=== PATIENT | female | born 1995 | race Caucasian/White ===

== ENCOUNTER 2019-01-09 14:56 | Emergency (ER) | payer OTHER ==
[~2019-01-09] VITALS: Ht 167.6 cm; Wt 104.5 kg
[2019-01-09 15:34] VITALS: Ht 167.6 cm; Wt 104.5 kg
[2019-01-09] MEDS ORDERED: CLEOCIN HCL300 MG PO (17:00)
[2019-01-09 17:12] VITALS: BP 115/65
== END 2019-01-09 17:12 | disposition home or self-care (01) ==
LOC: D.ER 14:56
DX: L05.01 Pilonidal cyst with abscess (principal)

== ENCOUNTER 2019-01-31 08:41 | Emergency (ER) | payer OTHER ==
[~2019-01-31] VITALS: Ht 167.6 cm; Wt 104.5 kg
[~2019-01-31 08:41] MED LIST: CLEOCIN HCL300 MG PO
[2019-01-31 08:53] VITALS: Ht 167.6 cm; Wt 104.5 kg
[2019-01-31 09:15] LABS: BASOPHILS 0.2 % (0-2); EOSINOPHILS 0.6 % (0-7); HEMATOCRIT 42.5 % (36.0-48.0); HEMOGLOBIN 14.6 g/dL (12-16); IMMATURE GRANULOCYTES 0.8 % (0-5); LYMPHOCYTES 18.4 % (15-50); MCHC 34.4 g/dL (31.0-37.0); MCV 93.2 fL (80.0-100.0); MONOCYTES 7.3 % (2-11); NEUTROPHILS 72.7 % (40-80); RBC 4.56 10x6/uL (4.00-5.40); RDW 14.1 % (11.5-14.5)
[2019-01-31 09:21] LABS: PLATELET COUNT 214 10x3/uL (130-400)
[2019-01-31 09:30] LABS: HCG URINE POSITIVE (NEGATIVE)
[2019-01-31 09:34] LABS: APPEARANCE HAZY (CLEAR); BILIRUBIN NEGATIVE (NEGATIVE); COLOR YELLOW (YELLOW); GLUCOSE NEGATIVE (NEGATIVE); KETONE SMALL mg/dL (NEGATIVE); NITRITE NEGATIVE (NEGATIVE); PROTEIN 1+ mg/dL (NEGATIVE); SPECIFIC GRAVITY 1.025 (1.005-1.020); UROBILINOGEN NORMAL (NORMAL)
[2019-01-31 09:35] LABS: BACTERIA FEW /hpf (NONE SEEN); EPITHELIAL CELLS 0-5 /hpf (0-5); WHITE CELLS - URINE 0-5 /hpf (0-5)
[2019-01-31 09:38] LABS: ALBUMIN 4.1 g/dL (3.4-5.0); ALKALINE PHOSPHATASE 71 U/L (46-116); ALT (SGPT) 109 U/L (10-68); BILIRUBIN - TOTAL 0.29 mg/dL (0.2-1.3); CALC OSMOLALITY 276 mosm/kg (275-300); CALCIUM 9.2 mg/dL (8.5-10.1); CARBON DIOXIDE 22.8 mmol/L (21.0-32.0); CHLORIDE - SERUM 105 mmol/L (98-107); CREATININE - SERUM 0.7 mg/dL (0.6-1.3); GLUCOSE 130 mg/dL (74-106); LIPASE 70 U/L (73-393); POTASSIUM - SERUM 3.8 mmol/L (3.5-5.1); PROTEIN - SERUM 7.3 g/dL (6.4-8.2); SODIUM 138 mmol/L (136-145); UREA NITROGEN 10 mg/dL (7-18); eGFR NON AFRICAN AMERICAN > 90 mL/min (90-120)
[2019-01-31] MEDS ORDERED: PRENAVITE1 TAB PO (11:16)
[2019-01-31 11:26] VITALS: BP 124/62
== END 2019-01-31 11:27 | disposition home or self-care (01) ==
LOC: D.ER 08:41
PROVIDERS: Family Medicine
DX: R10.9 Unspecified abdominal pain (principal); R31.9 Hematuria, unspecified; Z33.1 Pregnant state, incidental

== ENCOUNTER → 2019-05-24 11:44 | Outpatient (CLI) | payer MEDICAID ==
[2019-01-31 08:53] VITALS: BMI 37.2
[~2019-05-24 11:44] MED LIST changes: +PRENAVITE1 TAB PO
== END | disposition home or self-care (01) ==
LOC: D.US 11:44
PROVIDERS: ATTEND Obstetrics & Gynecology
DX: O09.90 Supervision of high risk pregnancy, unspecified, unspecified trimester (principal); Z3A.00 Weeks of gestation of pregnancy not specified

== ENCOUNTER 2019-07-31 20:22 | Inpatient (IN) | payer MEDICAID ==
[~2019-07-31] VITALS: Ht 167.6 cm; Wt 119.1 kg
[2019-07-31 21:00] LABS: HEMATOCRIT 37.7 % (36.0-48.0); HEMOGLOBIN 12.6 g/dL (12-16); MCH 30.1 pg (26.0-34.0); MCHC 33.4 g/dL (31.0-37.0); MCV 90.2 fL (80.0-100.0); MEAN PLATELET VOLUME 9.9 fL (7.4-10.4); PLATELET COUNT 298 10x3/uL (130-400); RBC 4.18 10x6/uL (4.00-5.40); RDW 13.3 % (11.5-14.5); WBC 21.4 10x3/uL (4.8-10.8)
[2019-07-31 21:04] LABS: CALC OSMOLALITY 272 mosm/kg (275-300); CALCIUM 9.1 mg/dL (8.5-10.1); CARBON DIOXIDE 21.8 mmol/L (21.0-32.0); CHLORIDE - SERUM 103 mmol/L (98-107); CREATININE - SERUM 0.7 mg/dL (0.6-1.3); GLUCOSE 119 mg/dL (74-106); SODIUM 137 mmol/L (136-145); UREA NITROGEN 6 mg/dL (7-18); eGFR NON AFRICAN AMERICAN > 90 mL/min (90-120)
[2019-07-31 21:10] LABS: ALBUMIN 2.7 g/dL (3.4-5.0); ALKALINE PHOSPHATASE 194 U/L (30-120); ALT (SGPT) 20 U/L (10-68); BILIRUBIN - TOTAL 0.28 mg/dL (0.2-1.3); PROTEIN - SERUM 7.3 g/dL (6.4-8.2)
[2019-07-31 21:40] LABS: EOSINOPHILS 1 % (0-7); LYMPHOCYTES 6 % (15-50); MONOCYTES 4 % (2-11); NEUTROPHILS 84 % (40-80); PLATELET ESTIMATE NORMAL
[2019-07-31 22:39] LABS: BILIRUBIN NEGATIVE (NEGATIVE); GLUCOSE NEGATIVE (NEGATIVE); KETONE NEGATIVE (NEGATIVE); NITRITE NEGATIVE (NEGATIVE); SPECIFIC GRAVITY 1.015 (1.005-1.020); UROBILINOGEN NORMAL (NORMAL)
--- NOTE | 2019-07-31 23:00 | NUR ---
PT FHT 163 AT THIS TIME.
--- NOTE | 2019-08-01 | NUR ---
PT C/O BEING CONCERNED THAT HER BABY HAS NOT MOVED SINCE ABOUT 1900 PT STATES THAT HE WAS VERY ACTIVE ALL DAY. L AND D CALLED AND INFORMED STATES THEY WILL INFORM DR PHILIPPE.
[2019-08-01 01:10] VITALS: Ht 167.6 cm; Wt 119.1 kg
--- NOTE | 2019-08-01 01:15 | NUR ---
DR PHILIPPE CALLED TO CHECK ON PT AND GIVE NEW ORDERS. HE IS ORDERING A BPP ULTRASOUND STAT...HE IS TO BE NOTIFIED IF SCORE ANYTHING OTHER THAN 88. ALSO ORDERED 2 NEW ANTIBIOTICS TO BE GIVEN TONIGHT.
--- NOTE | 2019-08-01 01:20 | NUR ---
CALLED RADIOLOGY TO ADVISE OF STAT ULTRASOUND ORDER.
--- NOTE | 2019-08-01 03:10 | NUR ---
PT TAKEN DOWN TO L & D FOR NON STRESS TEST VIA WHEELCHAIR.
--- NOTE | 2019-08-01 04:15 | NUR ---
ESCORTED PT BACK TO MED SURG FROM L & D VIA WHEELCHAIR.
--- NOTE | 2019-08-01 10:42 | NUR ---
REPORT CALLED TO [facility].
--- NOTE | 2019-08-01 11:00 | NUR ---
RECEIVED PT BY BED FROM [facility] FLOOR, UPON ARRIVAL SHE IS AWAKE AND ALERT. RATES PAIN AT 0/10. SALINE LOCK TO RIGHT HAND PATENT WITHOUT COMPLAINTS OF TENDERNESS. PT DOES HAVE A HACKING NON PRODUCTIVE COUGH, INSPIRATORY AND EXPIRATORY WHEEZES NOTED BILAT. VSS WITH TEMP AT 97.9. LARGE ICE WATER REQUESTED. NO OTHER NEEDS AT THIS TIME. CALL LIGHT IN REACH.
--- NOTE | 2019-08-01 11:15 | NUR ---
DR PHILIPPE ON UNIT WITH VERBAL REPORT GIVEN OF PT COUGH AND WHEEZES NOTED BILAT AND THAT SHE IS CURRENTLY AFEBRILE. NEW MED ORDERS RECEIVED FOR ROBITUSSIN AC Q4H PRN AND RT CONSULT FOR UPDRATE TREATMENTS. MD TO ROOM TO TALK WITH PT ABOUT PLAN OF CARE.
--- NOTE | 2019-08-01 11:40 | NUR ---
LARGE ICE WATER PROVIDED REQUESTED. NO OTHER NEEDS AT THIS TIME. CALL LIGHT IS WITH IN HER REACH.
--- NOTE | 2019-08-01 12:45 | NUR ---
ROBITUSSIN GIVEN PO SCANNED TO EMAR. PT SITTING UP IN BED WITH REGULAR DIET TRAY. DENIES PAIN AT THIS TIME.
--- NOTE | 2019-08-01 14:01 | NUR ---
AMPICILLIN IV COMPLETED, IV SITE FLUSHED AND SALINE LOCKED. PT REQUEST TO GET UP TO SHOWER, SALINE LOCK COVERED. TOWELS PLACED IN BATHROOM, SHE DENIES NEED FOR ANY ASSISTANCE. BED LINENS CHANGED WHILE PT IS IN THE SHOWER.
--- NOTE | 2019-08-01 14:16 | NUR ---
OUT OF SHOWER AND DRESSED IN HER PERSONNEL CLOTHING, DENIES NEEDS AT THIS TIME. CONTINUE TO RATE PAIN AT 0/10, LIGHT TURNED DOWN PER HER REQUEST, STATES SHE IS GOING TO TRY AND SLEEP IF POSSIBLE WILL CALL IF NURSE IS NEEDED.
--- NOTE | 2019-08-01 17:45 | NUR ---
pt awake and watching tv with her mom at bedside. denies pain but does ask for cough med.
--- NOTE | 2019-08-01 18:00 | NUR ---
robitussin ac given as scanned to emar. no other needs at this time.
--- NOTE | 2019-08-01 18:15 | NUR ---
RT notified for second time about updraft treatment.
--- NOTE | 2019-08-01 19:30 | NUR ---
PATIENT TRANSFERED TO ROOM 1257, ORIENTED TO ROOM, FHT 155-160 BABY ACTIVITY DETECTED ON DOPPLER
--- NOTE | 2019-08-01 20:00 | NUR ---
sitting up in bed watching TV. Mother at bedside, SR up xe and call light in reach
--- NOTE | 2019-08-01 21:00 | NUR ---
patient watching TV with her mother present at bedside. RT here for breathing treatment. Dry cough with no sputum. Informed patient that Doctor has Rx her medication for sleep if needed.
--- NOTE | 2019-08-01 22:48 | NUR ---
Ambien 10 mg requested and given for sleep at patient request
--- NOTE | 2019-08-02 00:05 | NUR ---
Sleeping well, saline lock patent, no redness. SR up x2 call light in reach
--- NOTE | 2019-08-02 01:34 | NUR ---
SLEEPING, CALL LIGHT IN REACH, IV FLUSHED WITH NS EASILY
--- NOTE | 2019-08-02 01:34 | NUR ---
resting well, apple juice, 240 ml call light in reach
--- NOTE | 2019-08-02 02:20 | NUR ---
RESTING WITH EYES CLOSED, MOTHER AT BEDSIDE, CALL LIGHT IN REACH, NIGHT LIGHT ON
--- NOTE | 2019-08-02 03:15 | NUR ---
RESTING WITH EYES CLOSED, NO DISTRESS NOTED. CALL LIGHT IN REACH, FAMILY AT BEDSIDE
--- NOTE | 2019-08-02 04:18 | NUR ---
SLEEPING ON RIGHT SIDE, CALL LIGHT IN REACH, NO DISTRESS NOTED
--- NOTE | 2019-08-02 05:00 | NUR ---
patient sleeping, has been dealing with cough over the past month, did not wake for VS
--- NOTE | 2019-08-02 06:15 | NUR ---
patient remains asleep, mother at bedside, call light in reach
--- NOTE | 2019-08-02 07:25 | NUR ---
DR. PHILIPPE ON UNIT, PROGRESS REPORT GIVEN TO .
--- NOTE | 2019-08-02 07:45 | NUR ---
TO PT'S ROOM FOR AM ASSESSMENT. ASSESSMENT COMPLETED, SEE FLOWSHEET. PT PERFORMING COUGHING AND DEEP BREATHING EXERCISES, WHICH PRODUCES A NON PRODUCTIVE COUGH. PT REPORTS SHE IS FEELING MUCH BETTER. PT ALSO REPORTS HER IV TO RIGHT HAND HAS BECOME PAINFUL WITH MED ADM, AND IS NOW TENDER, AND WAS ITCHING LAST NIGHT. PT REQUESTS IV TO BE RESITED. BREAKFAST TRAY SERVED BY DIETARY, PT HAS EATEN 75 %. PT DENIES PAIN OR OTHER NEEDS AT THIS TIME, SR UP X 2, CALL LIGHT AND PHONE WITHIN REACH.
--- NOTE | 2019-08-02 08:15 | NUR ---
IV RESITED TO LEFT WRIST WITH 20 G CATH X 1 ATTEMPT WITH NS INFUSING TO KVO. SEE EMAR FOR ALL MED ADM BY THIS RN.
--- NOTE | 2019-08-02 08:20 | NUR ---
DR. PHILIPPE IN ROOM SPEAKING WITH PT REGARDING PLAN OF CARE, WILL REPEAT LABWORK IN THE MORNING, WILL CONTINUE ANTIBIOTICS.
--- NOTE | 2019-08-02 10:05 | NUR ---
TO PT'S ROOM, IV NS SET TO KVO, ANTIBIOTIC IS COMPLETED. NO REDNESS OR SWELLING NOTED TO IV SITE. PT IS RESTING WITH EYES CLOSED, RESP EVEN AND UL. LIGHTS THEN DIMMED IN ROOM FOR PT TO REST. SRUP X2, CALL LIGHT AND PHONE WITHIN REACH.
--- NOTE | 2019-08-02 10:20 | NUR ---
RESPIRATORY HERE AND TO PT'S ROOM FOR TREATMENT.
--- NOTE | 2019-08-02 13:08 | NUR ---
report received from A [employer] harding. pt denies pain or discomfort and has no needs at this time.
--- NOTE | 2019-08-02 15:00 | NUR ---
unasyn iv completed, saline lock flushed with 5ml. FHT with doppler 140-150 x 2 minutes. Pt continue to deny pain or discomfort and states that she is feeling better today. Call light in reach.
--- NOTE | 2019-08-02 16:45 | NUR ---
IV COVERED SO THAT PT MAY TAKE A SHOWER. BED LINENS CHANGED WHILE SHE IS SHOWERING.
--- NOTE | 2019-08-02 18:00 | NUR ---
PT DENIES NEEDS AT THIS TIME. RATES PAIN AT 0/10.;
--- NOTE | 2019-08-02 19:30 | NUR ---
SITTING UP IN BED EATING, LUNGS CLEAR, FEELING MUCH BETTER. SALINE LOCK PATENT, IV MEDS STARTED. DENIES NEEDS
--- NOTE | 2019-08-02 20:20 | NUR ---
WATCHING TV, CALL LIGHT IN REACH, SR UP X2 DENIES NEEDS
--- NOTE | 2019-08-02 21:45 | NUR ---
FHT 150 PER DOPPLER, DENIES NEEDS, SALINE LOCK PATIENT, MOTHER AT BEDSIDE, CALL LIGHT IN REACH
--- NOTE | 2019-08-02 23:00 | NUR ---
RECEIVED REPORT FROM CHEYANNE SALEEM
--- NOTE | 2019-08-02 23:20 | NUR ---
PT RESTING IN BED, WATCHING TV, S/O AT BEDSIDE, PT DENIES NEEDS OR PAIN AT THIS TIME
--- NOTE | 2019-08-03 00:10 | NUR ---
PT AWAKE, LAYING IN BED PLAYING ON CELL PHONES, VS OBTAINED, PT DENIES PAIN, REQUESTED AND SERVED FRESH H20, DENIES FURTHER NEEDS, S/O ASLEEP ON COUCH, BED IN LOW POSITION, SIDE RAILS X 2, CALL LIGHT IN REACH
--- NOTE | 2019-08-03 01:18 | NUR ---
PT AWAKE, SALINE LOCK CONVERTED TO IV, FLUSHED WITH 10MLS OF NS WITH NO DIFFICULTY, ADM COUGH SYRUP PO AND HUNG UNASYN IVPB PER MD ORDERS, SEE EMAR, PT DENIES NEEDS OR PAIN AT THIS TIME, S/O ASLEEP AT BEDSIDE
--- NOTE | 2019-08-03 02:03 | NUR ---
UNASYN FINISHED INFUSING, ADM ZITHROMAX IVPB PER MD ORDERS, SEE EMAR
--- NOTE | 2019-08-03 04:16 | NUR ---
PT RESTING WITH EYES CLOSED, RESP QUIET, NO DISTRESS NOTED, LEFT UNDISTURBED AT THIS TIME, BED IN LOW POSITION, SIDE RAILS X 2, CALL LIGHT IN REACH, S/O ASLEEP ON COUCH
--- NOTE | 2019-08-03 06:00 | NUR ---
CHEYANNE SALEEM REPORTS THAT SHE SALINE LOCKED IV, DENIES NEEDS OR PAIN AT THIS TIME
--- NOTE | 2019-08-03 07:00 | NUR ---
REPORT RECEIVED FROM Danny PRICE RN. PT RESTING WITH EYES CLOSED. FEMALE VISITOR LORENA AT BEDSIDE ON SOFA.
[2019-08-03 07:25] VITALS: BP 117/81
--- NOTE | 2019-08-03 07:25 | NUR ---
TO ROOM TO ADMINISTER ANTIBIOTIC AND ASSESSMENT. IV FLUSHED WITH 10CC NS WITHOUT DIFFICULTY. IV SITE PATENT WITHOUT REDNESS, SWELLING OR PAIN. UNASYN HUNG AND INFUSING VIA IV PUMP. ASSESSMENT COMPLETE. SEE FLOWSHEET. FHT'S 140-150'S PER DOPPLER.
--- NOTE | 2019-08-03 09:15 | NUR ---
DR. PHILIPPE HERE TO SEE PT.
--- NOTE | 2019-08-03 09:30 | NUR ---
IV D/C'D. CATHETER INTACT. PRESSURE APPLIED TO SITE. DRESSING APPLIED. NO BLEEDING NOTED.
--- NOTE | 2019-08-03 11:00 | NUR ---
VERBAL AND WRITTEN DISCHARGE INSTRUCTIONS GONE OVER WITH PT, SHE IS PROVIDED WITH WRITTEN SCRIPTS FOR AMOXIL 500MG, AZITHROMYCIN 250MG, AND ROBITUSSIN AC. DENIES ANY QUESTIONS OR CONCERNS AND STATES HER UNDERSTANDING TO RETURN TO ER IF HER SYMPTOMS RETURN. SHE IS TO FOLLOW UP AT [facility] ON 08-12-19. WHEELCHAIR OFFERED BUT SHE DENIES, AMB TO FRONT WITH NURSE. HOME BY PRIVATE CAR WITH HER MOTHER.
--- NOTE | 2019-08-04 10:06 | MORECARE ---
CASE MANAGEMENT DISCHARGE SUMMARY PATIENT: JOSE EDUARDO NULL UNIT: [id number] ADM DATE: 07/31/19 AGE: 23 : [birth year] SEX: F ROOM/BED: D.1257 AUTHOR: BRETT SUERO PHYSICIAN: REFERRING PHYSICIAN: ANTOINETTE PHILIPPE MD DATE OF SERVICE: 08/04/19 Discharge Plan Patient Name: JOSE EDUARDO NULL [facility] [facility] 1995 Planned Disposition: Home Anticipated Discharge Date: 08/03/19 Discharge Date: 08/03/2019 Expected LOS: 3 Initial Reviewer: [email or web address] Initial Review Date: 08/01/2019 Generated: 08/04/19 11:05 am Patient Name: JOSE EDUARDO NULL Page [phone] at 1006 All edits/amendments must be made on the electronic document DICTATION DATE: 08/04/19 1005 HOIST WORKER: DARIEL 08/04/19 1005 RPT#: [id number] DC DATE:08/03/19 STATUS: DIS IN [facility] [address] [place] [address] END OF REPORT
== END 2019-08-03 11:12 | disposition home or self-care (01) | DRG 833 ==
LOC: D.ER 20:22 → D.MS 23:36 → D.LD 23:36 → D.WS 08-01 11:31 → D.LD 08-01 19:30
PROVIDERS: Family Medicine; ADMIT Obstetrics & Gynecology; ATTEND Obstetrics & Gynecology
DX: O99.513 Diseases of the respiratory system complicating pregnancy, third trimester (principal); Z3A.32 32 weeks gestation of pregnancy

== ENCOUNTER 2019-08-24 15:11 | Outpatient (CLI) | payer MEDICAID ==
[2019-08-01 01:10] VITALS: BMI 42.3
[~2019-08-24 15:11] MED LIST changes: +AMOXICILLIN500 M1 PO; +FLOVENT HFA 11012 GM INH; +GUAIATUSSIN AC PO; +GUAIFEN-CODEINE10 ML PO; +ZITHROMAX250 MG PO
== END 2019-08-24 17:30 | disposition home or self-care (01) ==
LOC: D.LDO 15:11
PROVIDERS: ATTEND Student in an Organized Health Care Education/Training Program
DX: O35.9XX0 Maternal care for (suspected) fetal abnormality and damage, unspecified, not applicable or unspecified (principal)

== ENCOUNTER 2019-09-13 00:03 | Outpatient (CLI) | payer MEDICAID ==
[2019-08-01 01:10] VITALS: BMI 42.3
[2019-09-13 02:28] LABS: BILIRUBIN NEGATIVE (NEGATIVE); GLUCOSE NEGATIVE (NEGATIVE); KETONE NEGATIVE (NEGATIVE); NITRITE NEGATIVE (NEGATIVE); SPECIFIC GRAVITY 1.025 (1.005-1.020); UROBILINOGEN NORMAL (NORMAL)
== END 2019-09-13 01:42 | disposition home or self-care (01) ==
LOC: D.LDO 00:03
PROVIDERS: ATTEND Obstetrics & Gynecology
DX: O26.893 Other specified pregnancy related conditions, third trimester (principal); Z3A.38 38 weeks gestation of pregnancy; N85.8 Other specified noninflammatory disorders of uterus

== ENCOUNTER 2019-09-18 15:04 | Outpatient (CLI) | payer MEDICAID ==
[2019-08-01 01:10] VITALS: BMI 42.3
== END 2019-09-18 15:46 | disposition home or self-care (01) ==
LOC: D.LDO 15:04
PROVIDERS: ATTEND Obstetrics & Gynecology
DX: O26.893 Other specified pregnancy related conditions, third trimester (principal); Z3A.39 39 weeks gestation of pregnancy; N85.8 Other specified noninflammatory disorders of uterus

== ENCOUNTER 2019-09-23 19:45 | Inpatient (IN) | payer MEDICAID ==
[~2019-09-23] VITALS: Ht 167.6 cm; Wt 119.1 kg
--- NOTE | ~2019-09-23 | OP ---
PATIENT NAME: JOSE EDUARDO NULL MEDICAL RECORD: [id number] :[birth year] LOCATION:[facility] D.[id number] ADMISSION DATE:09/23/19 SURGEON: MARIANNA VELASQUEZ DO DATE OF OPERATION: 09/25/2019 PREOPERATIVE DIAGNOSIS: Failure to progress. POSTOPERATIVE DIAGNOSIS: Failure to progress. PRIMARY SURGEON: Marianna Velasquez DO ANESTHESIA: Epidural. PROCEDURE: Primary low transverse section via Pfannenstiel incision. OPERATIVE FINDINGS: Male , weight 9 pounds 3 ounces, delivered at 1956, Apgars 9 and 9. Normal appearing uterus, bilateral fallopian tubes, bilateral ovaries. SPECIMENS: Placenta and cord. ESTIMATED BLOOD LOSS: 1100 cc. IV FLUIDS: 2300 cc. URINE OUTPUT: 175 cc clear urine. COMPLICATIONS: Uterine atony and given Hemabate times 1 with good uterine tone following. PROCEDURE IN DETAIL: The risks, benefits, alternatives, and indications of procedure were discussed with the patient. She voiced understanding of the procedure and signed the consent. She was taken to the OR where epidural anesthesia was administered and found to be adequate. She was placed in the dorsal supine position with a leftward tilt. She was prepped and draped in the normal sterile fashion. A Pfannenstiel skin incision was made with the scalpel and carried down to the underlying layer of the fascia with the Bovie. The fascia was incised in the midline and extended laterally. The inferior aspect of the fascial incision was grasped with Rufino clamps and the rectus muscle was dissected off sharply. Attention was then turned to the superior aspect of the fascial incision and the rectus muscle was dissected off in a similar fashion. The rectus muscle was in the midline down to the level of peritoneum. The peritoneum was identified and noted to be free of adherent bowel and entered bluntly. The peritoneum was further with gentle traction. The bladder blade was inserted. The uterus was incised in a transverse fashion in the lower uterine segment. The incision was extended with cephalad caudad traction. The infant's head was brought to the incision and the infant delivered without difficulty. Mouth and nose were suctioned. Cord was clamped and cut and the was handed off to waiting pediatricians. The placenta was manually removed. The uterus was exteriorized and a moist lap was used to assure complete removal of placental membranes. The hysterotomy was closed with 0 Vicryl in a running locked fashion with double layer closure. There was a hematoma noted at the left upper portion of the incision, which was ligated with suture and noted to not be expanding. Uterus, tubes, and ovaries were noted to be normal. The posterior cul-de-sac was irrigated with warm sterile water. OPERATIVE REPORT [id number] JOSE EDUARDO NULL Uterus, tubes, and ovaries were returned back to the abdominal cavity. A moist laparotomy sponge was used to assure complete removal of blood clots and fluid from the abdominal cavity. The hysterotomy was reinspected and noted to be hemostatic. The rectus muscle was closed with 2-0 Monocryl in a running fashion with good hemostasis. The fascial incision was closed with 0 Vicryl in a running fashion with good hemostasis. The subcutaneous fat was closed with 2-0 plain suture. The skin was closed in a subcuticular fashion with 3-0 Monocryl and Dermabond covering. All needle, lap, sponge, and instrument counts were correct times 2. The patient tolerated the procedure well and she was taken to recovery room in stable condition. TRANSINT:[id number] Voice Confirmation ID: [id number] DOCUMENT ID: [id number] MARIANNA VELASQUEZ DO CC: [id number] DICTATION DATE: 09/29/19920 CARBON COATER MACHINE OPERATOR: 09/29/19 1325 DIS IN 09/28/19 [facility] [address] [place] [address]
[2019-09-23 20:27] VITALS: BP 149/83; Ht 167.6 cm; Wt 119.1 kg
--- NOTE | 2019-09-23 22:07 | NUR ---
in room for wellness check. sittin up on bedside, mother in room. snack given
[2019-09-23 22:17] LABS: HEMATOCRIT 34.4 % (36.0-48.0); HEMOGLOBIN 10.8 g/dL (12-16); MCH 28.3 pg (26.0-34.0); MCHC 31.4 g/dL (31.0-37.0); MCV 90.3 fL (80.0-100.0); RBC 3.81 10x6/uL (4.00-5.40); RDW 14.3 % (11.5-14.5); WBC 10.3 10x3/uL (4.8-10.8)
[2019-09-24 16:25] LABS: BILIRUBIN NEGATIVE (NEGATIVE); GLUCOSE NEGATIVE (NEGATIVE); KETONE NEGATIVE (NEGATIVE); NITRITE NEGATIVE (NEGATIVE); SPECIFIC GRAVITY 1.015 (1.005-1.020); UROBILINOGEN NORMAL (NORMAL)
[2019-09-24 16:38] LABS: UDS - AMPHET NEGATIVE QUAL (NEGATIVE); UDS - BARB NEGATIVE QUAL (NEGATIVE); UDS - BENZO NEGATIVE QUAL (NEGATIVE); UDS - COCAINE NEGATIVE QUAL (NEGATIVE); UDS - OPIATE NEGATIVE QUAL (NEGATIVE); UDS - PCP NEGATIVE QUAL (NEGATIVE); UDS - THC NEGATIVE QUAL (NEGATIVE)
[2019-09-25 05:08] LABS: RAPID PLASMA REAGIN Non Reactive (Non Reactive)
--- NOTE | 2019-09-25 21:27 | NUR ---
PT REC'D FROM RECOVERY AT THIS TIME. NO DISTRESS NOTED. CORRAL CATH PATENT. PT ORIENTED TO ROOM AND CALL LIGHT. Karel SALEH RN
[2019-09-25 21:31] VITALS: BP 137/74
--- NOTE | 2019-09-25 22:00 | NUR ---
THIS RN TO BEDSIDE. PT AA&O X 4. CURRENTLY REPORTS ABD PAIN 7/10 THAT SHE DESCRIBES BURNING. BUTCHER CHICKEN AND FISH TEACHING DONE WITH PLANS TO INITIATE JAISON. PT EDUCATION GIVEN TO INCLUDE T/C/D, I.S. FUNDAL MASSAGE AND SITE EFFECTS OF HEMABATE. PT VERBALZIES UNDERSTANDING. FUNDAL MASSAGE PERFORMED. FUNDUS SLIGHTLY BOGGY, BUT FIRMS EASILY W/MASSAGE. SMALL RUBRA LOCHIA AND 1 QUARTER SIZE CLOT EXPRESSED W/MASSAGE. PERICARE DONE. PT TURNED SIDE TO SIDE W/MINIMAL ASSISTANCE AND CLEAN CHUX/TOWEL/PERIPADS PLACED. SEE FLOWSHEET FOR COMPLETE SHIFT ASSESSMENT POST DELIVERY.
--- NOTE | 2019-09-25 22:00 | NUR ---
FUNDAL CHECK DONE. FUNDUS FIRM,U/1, SMALL LOCHIA NOTED. PERICARE DONE TO CLEAN LOCHIA AND STOOL.
--- NOTE | 2019-09-25 22:15 | NUR ---
FUNDUS FIRM, U/1, SMALL LOCHIA NOTED. NO CLOTS EXPRESSED W/MASSAGE. PERICARE DONE FOR LOCHIA AND STOOL.
--- NOTE | 2019-09-25 22:30 | NUR ---
FUNDAL CHECK DONE. FUNDUS FIRM,U/1, SMALL RUBRA LOCHIA NOTED. PERICARE DONE FOR LOCHIA AND STOOL. CLEAN CHUX,TOWEL AND PAD PROVIDED. APPROX 150ML URINE DUMPED FROM UROMETER TO START Q 4HR I&O. PT'S MOTHER HAS BROUGHT HER A SODA TO DRINK. JELLO X 2 SERVED PER PT'S MOTHER. ICE CAP TO INCISION SITE.
--- NOTE | 2019-09-25 22:50 | NUR ---
PERICARE PROVIDED AT THIS TIME. PT TOLERATED WELL. Karel SALEH RN
--- NOTE | 2019-09-25 23:30 | NUR ---
PT'S MOTHER COMES TO NURSING STATION TO REPORT PT HAS HAD ANOTHER BM. THIS RN AND Karel SALEH RN TO BEDSIDE. PT TURNED FROM SIDE TO SIDE AND PERICARE PERFORMED. CLEAN TOWELS/CHUX/PADS PROVIDED. PT TOLERATED WELL. REPORTS PAIN 7/10 AFTER MOVING THIS TIME. PT ENCOURGED TO CONTINUE PUSHING TRENCH DIGGER HELPER BUTTON UNTIL SHE IS COMFORTABLEF. PT VERBALIZES UNDERSTANDING. TRENCH DIGGER HELPER BUTTON AT PT'S SIDE. BED IN LOW POSITION, SIDE RAILS UPX 2. CALL LIGHT AT PT'S SIDE. MOTHER AT BEDSIDE HOLDIUNG BABY. PT DENIES FURTHER NEEDS AT THIS TIME.
[2019-09-26] VITALS (7 sets, daily range): BP systolic 117–137; BP diastolic 57–84
--- NOTE | 2019-09-26 | NUR ---
THIS RN TO BEDSIDE FOR ROUNDING AND MIDNIGHT VITAL SIGNS. PT AA&O X 4. REPORTS INCREASED PAIN 8-9/10. PT REPORTS SHE HAS BEEN PUSHING HER CONSULTING BUSINESS DEVELOPER BUTTON. ORDERED CONSULTING BUSINESS DEVELOPER BOLUS DOSE EXCEEDS HARD STOPS. 4MG LIMIT GIVEN CONSULTING BUSINESS DEVELOPER BOLUS. VITAL SIGNS STABLE. PT NOW SHAKING. TEACHING PROVIDED. AT END OF ROUNDING, PT NO LONGER SHAKING. PT W/BABY UP IN ARMS. DENIES NEEDS AT THIS TIME. PT'S MOTHER HAS RAISED PT'S BED UP SO PT MAY REACH INTO CRIB WHILE AT BEDSIDE. PT DESIRES BED TO BE AT HIGHER LEVEL. TEACHING DONE IN REGARDS TO ARM RAILS REMAINING UP. CORRAL CATH DRAINING WELL VIA GRAVITY AT BEDSIDE. SCE WRAPS REMAIN IN PLACE, CONNECTED TO PUMP AND PUMP IS ON AND FUNCTIONING. CALL LIGHT, CONSULTING BUSINESS DEVELOPER BUTTON AND BEDSIDE TABLE AT PT'S SIDE.
--- NOTE | 2019-09-26 01:40 | NUR ---
THIS RN AND Karel SALEH RN TO BEDSIDE. FUNDAL CHECK DONE. FUNDUS FIRM,U/1, SMALL RUBRA LOCHIA NOTED. NO STOOL PRESENT. PERICARE DONE. CLEAN PERIPADS PLACED. PT REPORTS BECAUSE SHE CONTINUES TO SHAKE, HER INCISIONAL PAIN HAS INCREASED. PT RATES PAIN /10. PT ENCOURAGED TO CONTINUE TO PUSH WEATHER FORECASTER BUTTON AND SCHEDULED TORADOL WILL BE GIVEN AT 0300. PT VERBALZIES UNDERSTANDING AND AGREEABLE TO WAITING. PT DENIES NEEDS AT THIS TIME. BED LOWERED. SIDE RAILS UP X 2. CALL LIGHT AND WEATHER FORECASTER BUTTON AT PT'S SIDE. BABY PLACED IN PT'S ARMS PER PT'S MOTHER.
--- NOTE | 2019-09-26 01:50 | NUR ---
PT PERFORMS I.S. X 3 W/GOOD EFFORT AND CLEARS THROAT W/GOOD EFFORT. PT ENCOURAGED TO PERFORM I.S. X 3 [address] HR. SCD WRAPS REMAIN IN PLACE BILATERALLY. REMAIN CONNECTED TO PUMP AND PUMP IS ON AND FUNCTIONING.
--- NOTE | 2019-09-26 02:45 | NUR ---
PT RINGS CALL LIGHT REQUESTING ORANGE JUICE. THIS RN TO BEDSIDE TO SERVE LARGE ORNAGE JUICE. PAIN ASSESSED. PT REPORTS PAIN 6/10 AND REPORTS SHE HAS BEEN PUSHING HER TROLLEY COLLECTOR BUTTON. PT INFORMED THAT TORADOL IS SCHEDULED AT 0300 AND WILL BE ADMINISTERED.
--- NOTE | 2019-09-26 03:00 | NUR ---
THIS RN TO BEDSIDE TO ADMINISTER TORADOL 30MG IVP. PT FOUND TO BE SLEEPING IN LOW CHISHOLM'S POSITION. RESP EVEN. PT UNAWARE OF THIS RN'S PRESENCE. ID BAND SCANNED AND TORADOL ADMIN. WHILE AT BEDSIDE PT AWAKENS. INFORMED THAT TORADOL HAS BEEN GIVEN. PT DENIES NEEDS.
--- NOTE | 2019-09-26 03:10 | NUR ---
PT HEARD TO BE CALLING OUT TO HER MOTHER. THIS RN TO BEDSIDE TO SHE WAS PT IS NEEDING. PT REQUEST BLANKETS BE REMOVED SHE IS HOT. BLANKETS REMOVED AND ROOM TEMP ADJUSTED. PULSE OX PLACED BACK ON PT. MHR IS 132. PAIN ASSESSED. PT REPORTS PAIN IS 5/10. STATES "IT'S NOT THAT BAD." TEMP OBTAINED. ORAL TEMP OF 99.1 NOTED. PT DENIES SOB OR PAIN IN HER CHEST.
--- NOTE | 2019-09-26 03:38 | NUR ---
REPORT OF PT'S INCREASED HEART RATE, CURRENT BP, TEMP NO C/O CHEST PAIN OR SOB. ORDERS REC'D O GIVE 1LITER BOLUS OF NS AND HAVE AM CBC DRAWN NOW.
--- NOTE | 2019-09-26 03:42 | NUR ---
LAB CALLED FOR AM CBC TO DRAWN NOW RATHER THAN AT 0500.
--- NOTE | 2019-09-26 03:46 | NUR ---
NS UP TO INFUSE AT 999ML/HR PER MD ORDERS. LAB AT BEDSIDE FOR CBC DRAW. PT CONTINUES TO DENY SOB OR CHEST PAIN. URINE OUTPUT SINCE 0230 IS 150ML. URINE HAS BECOME MORE CONCENTRATED. FUNDUS FIRM,U/1. CURRENT PERIPADS W/MODERATE LOCHIA NOTED. SMALL RUBRA LOCHIA AND NO BLOOD CLOTS NOTED W/FUNDAL CHECK. CLEAN PERIPADS PLACED. PT REPORTS PAIN 5/10. STATES SHE DOESN'T FEEL THE NEED TO PUSH HER REGULATORY SUBMISSIONS ASSOCIATE BUTTON FOR PAIN AT THIS TIME. BED LOW, SIDE RAILS UPX 2. CALL LIGHT AND REGULATORY SUBMISSIONS ASSOCIATE BUTTON AT PT'S SIDE.
[2019-09-26 03:57] LABS: BASOPHILS 0.1 % (0-2); EOSINOPHILS 0 % (0-7); HEMATOCRIT 30.5 % (36.0-48.0); IMMATURE GRANULOCYTES 0.3 % (0-5); LYMPHOCYTES 8.7 % (15-50); MCH 26.9 pg (26.0-34.0); MCHC 29.5 g/dL (31.0-37.0); MEAN PLATELET VOLUME 10.1 fL (7.4-10.4); MONOCYTES 6.7 % (2-11); NEUTROPHILS 84.2 % (40-80); RBC 3.35 10x6/uL (4.00-5.40); RDW 15.3 % (11.5-14.5); WBC 12.3 10x3/uL (4.8-10.8)
[2019-09-26 03:58] LABS: PLATELET COUNT 158 10x3/uL (130-400)
--- NOTE | 2019-09-26 04:30 | NUR ---
THIS RN TO BEDSIDE. PT AA&O X 4. REPOSITIONS SELF UP IN BED PREPARING FOR . BREATHSOUNDS ASCULATED. CLEAR/EQUAL. PT DENIES PAIN OTHER THAN INCISIONAL PAIN WHICH SHE REPORTS IS TOLERABLE AT THIS TIME.APPROX 500ML REMAIN IN NS BAG. URINE FLOWING FREELY TO UROMETER. LOCHIA IS SMALL. SCD WRAPS REMAIN IN PLACE, CONNECTED TO PUMP. PUMP IS ON AND FUNCTIONING. NSY NURSE AT BEDSIDE TO ASSIST PT W/GETTING BABY LATCHED FOR NURSING. FRESH ICE CAP PLACED. PT DENIES NEEDS AT THIS TIME.
--- NOTE | 2019-09-26 07:16 | NUR ---
SHIFT ASSESSMENT COMPLETED. IN CRIB, VISITOR X 1 AT BEDSIDE. PT IS READY TO GET OOB AND EAT REGULAR FOOD. USING CONTENT ADMINISTRATOR MORPHINE FOR PAIN MANAGEMENT. SIDERAILS UP X 2, CALL LIGHT IN REACH.
--- NOTE | 2019-09-26 08:19 | NUR ---
IV FLUIDS AND STOCK DRIER TENDER MORPHIN NEAR EMPTY, CONTACTED DR VELASUQEZ FOR ORDERS. TO. RECEIVED.
--- NOTE | 2019-09-26 08:30 | NUR ---
IV FLUIDS AND GERMINATION WORKER DC'D, NO MORPHINE LEFT IN GERMINATION WORKER. SALINE LOCK FLUSHED. CORRAL DC'D WITH 300 ML DARK YELLOW URINE IN BAG. DISCUSSED POC FOR THIS AM TO INCLUDE SHOWER, AMBULATION, CHANGE TO PO MEDS. INFANT IN CRIB, VISITOR X 1 IN ROOM. REGULAR DIET WAS EATEN. SIDE RAILS UP X 2, CALL LIGHT IN REACH.
--- NOTE | 2019-09-26 08:40 | NUR ---
SCHEDULED MEDS AND PERCOCET 10 MG GIVEN PO FOR RELIEF OF 7/10 ABDOMINAL PAIN. SIDERAILS UP X 2, CALL LIGHT IN REACH.
--- NOTE | 2019-09-26 09:33 | NUR ---
UP TO BATHROOM TO VOID, BRIEF MOMENT OF LIGHTHEADEDNESS ONCE IN BATHROOM BUT IT PASSED WITHOUT REOCCURANCE. VOIDED 100 ML PINK TINGE URINE, LOCHIA. PERICARE WITH WARM WASHCLOTH, CLEAN SANTANA-PANTS AND SANTANA-PADS X 2 PLACED, GOWN CHANGED, AMBULATED BACK TO BED WITHOUT DIFFICULTY. SCDS REPLACED, FRESH ICE PACK GIVEN. SAYS SHE FEELS BETTER NOW. SIDERAILS UP X 2, CALL LIGHT IN REACH, INFANT IN CRIB, VISITOR X 1 IN ROOM. TO CALL IF NEEDING ASSISTANCE OR WHEN READY TO GET OOB AGAIN. VERBALIZED UNDERSTANDING.
--- NOTE | 2019-09-26 10:01 | NUR ---
SITTING UP IN BED HOLDING . ASKED FOR NURSERY NURSE TO CHECK SECONDARY TO CONTINUING TO COUGH UP "AMNIOTIC FLUID". INSTRUCTED ON USE OF BULB SYRINGE. Kunal COELLO, RN NURSERY NOTIFIED. PT SAYS HER PAIN IS BETTER. NOW A 5-6. PT MOTHER IN ROOM.
--- NOTE | 2019-09-26 11:29 | NUR ---
DR VELASQUEZ VISITED.
--- NOTE | 2019-09-26 11:48 | NUR ---
DESIRES TO TAKE A SHOWER AND AMBULATE AFTER LUNCH. NO REQUESTS AT PRESENT. PULSE RATE 105-110, DR VELASQUEZ AWARE.
--- NOTE | 2019-09-26 12:38 | NUR ---
UP TO BATHROOM TO VOID. MINIMAL ASSISTANCE NEEDED. VOIDED 600 ML URINE, LOCHIA RUBRA SMALL. HAS CBC ORDERED FOR 1400. WILL SHOWER AND AMBULATE AFTER LUNCH. DESIRED TO SIT ON EDGE OF BED TO FINISH EATING LUNCH. VISITOR AND INFANT IN ROOM. TO CALL IF ANYTHING ELSE IS NEEDED.
--- NOTE | 2019-09-26 13:19 | NUR ---
SITTING UP ON COUCH WITH . DENIES NEEDING ANYTHING FOR PAIN AT THIS TIME. DISCUSSED PLAN OF CARE INCLUDING PAIN MANAGEMENT, SHOWER AND AMBULATION. DESIRES TO WAIT APPROX AN HOUR FOR MOTRIN AND PERCOCET. INSTRUCTED TO LET RN KNOW IF NEEDING ANYTHING FOR PAIN BEFORE THEN. VERBALIZED UNDERSTANDING.
--- NOTE | 2019-09-26 14:07 | NUR ---
LAB HERE TO DO CBC.
[2019-09-26 14:16] LABS: BASOPHILS 0.1 % (0-2); EOSINOPHILS 0 % (0-7); IMMATURE GRANULOCYTES 0.4 % (0-5); LYMPHOCYTES 7.7 % (15-50); MCHC 31.2 g/dL (31.0-37.0); MCV 89.8 fL (80.0-100.0); MEAN PLATELET VOLUME 10.2 fL (7.4-10.4); MONOCYTES 7.1 % (2-11); NEUTROPHILS 84.7 % (40-80); PLATELET COUNT 171 10x3/uL (130-400); RDW 15.4 % (11.5-14.5)
[2019-09-26 14:19] LABS: HEMATOCRIT 23.7 % (36.0-48.0); RBC 2.64 10x6/uL (4.00-5.40); WBC 15.9 10x3/uL (4.8-10.8)
[2019-09-26 14:20] LABS: HEMOGLOBIN 7.4 g/dL (12-16)
--- NOTE | 2019-09-26 14:20 | NUR ---
CRITICAL LAB VALUE HBG 7.4 RECEIVED FROM MELISSA IN LAB.
--- NOTE | 2019-09-26 14:25 | NUR ---
PAGED DR VELASQUEZ WHO RETURNED CALL. INFORMED OF HGB/HCT/WBC RESULTS. INFORMED MD THAT PT HAS HAD MINIMAL LOCHIA, NOT PASSING BLOOD CLOTS, NO C/O INCREASED PAIN, NO C/O DIZZINESS OTHER THAN BRIEF EPISODE WHEN FIRST OOB. HAS BEEN UP TO BATHROOM AND SITTING ON COUCH WITHOUT C/O LIGHTHEADEDNESS OR DIZZINESS. PER MD TO OFFER PATIENT BLOOD TRANSFUSION OR REPEAT CBC AT 1800 IF PATIENT DESIRES TO WAIT AND SEE.
--- NOTE | 2019-09-26 14:44 | NUR ---
DISCUSSED OPTIONS OF BLOOD TRANSFUSION OR REPEAT CBC AT 1800. PT SAYS SHE FEELS FINE, DENIES ABNORMAL PAIN OR DIZZINESS WHEN UP. SAYS SHE ONLY HURTS A LITTLE WHEN MOVING. CURRENTLY LAYING IN BED HOLDING . COLOR PINK. DISCUSSED BENEFITS, RISKS, ALTERNATIVES TO BLOOD TRANSFUSION AND F/U CBC. DESIRES TO WAIT AND HAVE CBC RECHECKED. PLANS TO TALK TO HER MOTHER TOO. INSTRUCTED PATIENT THAT IF SHE CHANGES HER MIND THEN TO LET RN KNOW. VERBALIZED UNDERSTANDING.
--- NOTE | 2019-09-26 15:46 | NUR ---
SITTING ON EDGE OF BED. SAYS HER RIGHT SIDE ABDOMEN STARTED HURTING WHEN SITTING UP, 6/10 SHARP INTERMITTENT PAIN. DESIRES TO SHOWER NOW. ITEMS GIVEN AND AMBULATED TO BATHROOM FOR SHOWER. INSTRUCTED ON INCISION CARE AND WASHING WITH HEBICLEANSE. PT MOTHER IN BR WITH PT. INFANT IN CRIB, COMPLETE LINEN CHANGE DONE.
--- NOTE | 2019-09-26 16:20 | NUR ---
COMPLETED SHOWER AND RETURNED TO BED. CURRENTLY SITTING UP IN BED GETTING READY TO BREASTFEED INFANT. C/O 6/10 INCISION AND RIGHT SIDE ABD PAIN. NO ACUTE DISTRESS NOTED. SIDERAILS UP X 2, CALL LIGHT IN REACH. VISITOR IN ROOM.
--- NOTE | 2019-09-26 16:36 | NUR ---
DR VELASQUEZ ON L&D INFORMED OF PT C/O PAIN AND NOT TIME FOR PERCOCET. ORDERS RECEIVED. WILL OFFER PT MORPHINE IV PER DR VELASQUEZ ORDER.
--- NOTE | 2019-09-26 16:50 | NUR ---
MORPHINE SULFATE GIVEN SLOW IVP RIGHT WRIST AFTER FLUSHING SALINE LOCK AND FLUSHED FOLLOWING ADMINISTRATION. NO SIGNS OF INFILTRATION. 6/10 INCISIONAL SHARP PAIN AND OCCASIONAL RIGHT SHOULDER PAIN. DISCUSSED POSSIBLY RELATED TO GAS. DISCUSSED RELIEF MEASURES LLD, AMBULATION AND MYLICON IF NEEDED. DESIRES TO EAT DINNER AT THIS TIME. PLACED IN CRIB. SIDERAILS UP X 2, CALL LIGHT IN REACH. WILL REASSESS PRN.
--- NOTE | 2019-09-26 17:12 | NUR ---
SAYS SHE IS FEELING A LOT BETTER. NO LONGER WITH PAIN IN RIGHT SIDE AND SHOULDER. 4/10 INCISIONAL SHARP PAIN. NEW ORDER FOR FERROUS AND VITAMIN C NOTED. FIRST DOSE WAS WAS GIVEN. PLAN PERCOCET 10 MG AT 4 HOURS FROM LAST DOSE AND AMBULATE IN [place] THIS PM. VERBALIZED UNDERSTANDING.
--- NOTE | 2019-09-26 17:58 | NUR ---
PATIENT SAID SHE GOT UP TO COUCH AND THEN WENT BACK TO CRIB TO SEE IF SHE COULD STAND AND CHANGE BABY DIAPER EASIER. SAYS SHE FELT LIGHTHEADED BRIEFLY AND SAT DOWN. SAYS SHE FEELS FINE NOW. INSTRUCTED PT THAT POSSIBLY RELATED TO MORPHINE AND THAT SHE SHOULD NOT GET UP WITHOUT ASSISTANCE NEXT COUPLE OF TIMES OUT OF BED. LAB HERE NOW TO DRAW REPEAT CBC. VERBALIZED UNDERSTANDING. PT MOTHER IS IN ROOM. IN CRIB.
[2019-09-26 18:09] LABS: BASOPHILS 0.1 % (0-2); EOSINOPHILS 0 % (0-7); HEMATOCRIT 25.1 % (36.0-48.0); HEMOGLOBIN 7.7 g/dL (12-16); IMMATURE GRANULOCYTES 0.4 % (0-5); LYMPHOCYTES 6.3 % (15-50); MCH 27.9 pg (26.0-34.0); MCHC 30.7 g/dL (31.0-37.0); MCV 90.9 fL (80.0-100.0); MEAN PLATELET VOLUME 10.1 fL (7.4-10.4); MONOCYTES 6.5 % (2-11); NEUTROPHILS 86.7 % (40-80); PLATELET COUNT 190 10x3/uL (130-400); RBC 2.76 10x6/uL (4.00-5.40); RDW 15.6 % (11.5-14.5); WBC 16.2 10x3/uL (4.8-10.8)
--- NOTE | 2019-09-26 18:30 | NUR ---
RESULTS OF CBC GIVEN TO DR VELASQUEZ ALSO NOTIFIED OF PT BRIEF EPISODE OF LIGHTHEADEDNESS. PER DR VELASQUEZ PT CAN HAVE BLOOD TRANSFUSION BUT SHE IS NOT GOING TO FORCE PT TO HAVE ONE. NOTIFIED PT OF LAB RESULTS, DOES NOT DESIRE TRANSFUSION AT THIS TIME, FEELS IT WAS RELATED TO THE MORPHINE "THAT'S WHAT I TOLD MY MOTHER AT THE TIME BUT JUST WANTED TO LET YOU KNOW." INSTRUCTED PT THAT MD WILL REPEAT CBC IN AM AND TO LET RN KNOW IF SHE CHANGES HER MIND. COLOR REMAINS PINK. DESIRES TO WAIT TO AMBULATE IN THE [place] UNTIL AFTER SHE CAN GET BACK TO SLEEP. SIDERAILS UP X 2, CALL LIGHT IN REACH. REMINDED TO CALL FOR ASSISTANCE BEFORE GETTING UP TO AMBULATE. VERBALIZED UNDERSTANDING.
--- NOTE | 2019-09-26 19:45 | NUR ---
DISCUSSED POST OP ACTIVITIES AND RESTRICTIONS. DISCUSSED BREAST FEEDING SUPPLY AND DEMAND, DIET, REST, FLUIDS. DISCUSSED ENGORGEMENT, SORENESS, AND TREATMENT OPTIONS, VOICES UNDERSTANDING
--- NOTE | 2019-09-26 20:00 | NUR ---
AMBULATING IN [place] WITH MOTHER, MASK ON, DENIES NEEDS
--- NOTE | 2019-09-26 20:35 | NUR ---
SITTING UP IN CHAIR, DISCUSSED INFANT CARE, QUESTIONS ANSWERED, DENIES NEEDS
--- NOTE | 2019-09-26 21:30 | NUR ---
sitting up in chair watching TV, mother at bedside, baby in crib sleeping, denies needs at this time
--- NOTE | 2019-09-26 22:40 | NUR ---
sitting up in bed feeding baby, denies needs, SR up x2 and call light in reach
--- NOTE | 2019-09-26 23:05 | NUR ---
BATHROOM SUPPLIES REPLENISHED, HAS AMBULATED IN [place] TWICE TONIGHT. GAS PAIN IN SHOULDER IS MUCH BETTER, LIGHTS OUT WITH NIGHT LIGHT ON, PATIENT MOTHER AT BEDSIDE
--- NOTE | 2019-09-26 23:51 | NUR ---
PAIN MEDICATION GIVEN FOR PAIN SCALE 6/10 INCISIONAL PAIN, DENIES NEEDS, SR UP X2 AND CALL LIGHT IN REACH
--- NOTE | 2019-09-27 00:10 | NUR ---
AWAKE, PUTTING BABY IN CRIB, VS TAKEN, FUNDUS FIRM, ML -1 LOCHIA SM RUBRA, ABD LTV INCISION WELL APPROXIMATED, NO REDNESS/NO DRAINAGE NOTED.
--- NOTE | 2019-09-27 01:20 | NUR ---
awake with baby, denies needs, call light in reach
--- NOTE | 2019-09-27 02:46 | NUR ---
resting with eyes closed, scheduled Motrin given, SR up and call light in reach, grandmother holding baby
--- NOTE | 2019-09-27 04:55 | NUR ---
RESTING WITH EYES CLOSED, CALL LIGHT IN REACH, SR UP X2
--- NOTE | 2019-09-27 06:07 | NUR ---
RESTING, DENIES NEEDS, CALL LIGHT IN REACH
--- NOTE | 2019-09-27 06:15 | NUR ---
LAB HERE FOR MORNING BLOOD WORK
[2019-09-27 06:36] LABS: BASOPHILS 0.1 % (0-2); EOSINOPHILS 0.5 % (0-7); HEMATOCRIT 21.8 % (36.0-48.0); IMMATURE GRANULOCYTES 0.4 % (0-5); LYMPHOCYTES 11.8 % (15-50); MCH 28.2 pg (26.0-34.0); MCHC 30.7 g/dL (31.0-37.0); MCV 91.6 fL (80.0-100.0); MEAN PLATELET VOLUME 9.9 fL (7.4-10.4); NEUTROPHILS 80.2 % (40-80); PLATELET COUNT 191 10x3/uL (130-400); RBC 2.38 10x6/uL (4.00-5.40); RDW 15.9 % (11.5-14.5); WBC 12.9 10x3/uL (4.8-10.8)
--- NOTE | 2019-09-27 07:07 | NUR ---
TO ROOM FOR BEDSIDE REPORTING, PT NOTED TO BE RESTING WITH EYES CLOSED AND RESP EVEN, LEFT UNDISTURBED AT THIS TIME.
[2019-09-27 07:09] LABS: HEMOGLOBIN 6.7 g/dL (12-16)
--- NOTE | 2019-09-27 07:09 | NUR ---
LAB CALLS UNIT WITH RESULTS OF CRITICAL HEMOGLOBIN OF 6.7
--- NOTE | 2019-09-27 07:43 | NUR ---
DR VELASQUEZ ON UNIT FOR AM ROUNDS. CBC FROM THIS AM REVIEWED, ORDERS RECEIVED FOR 2 UNIT PRBC TO BE TRANSFUSED. IN TO TALK WITH PATIENT.
--- NOTE | 2019-09-27 09:00 | NUR ---
AM ASSESSMENT COMPLETED CHARTED TO FLOWSHEET. FUNDUS FIRM UPON MASSAGE AT U/U WTIH SCANT BLEEDING TO SANTANA PAD, SHE DENIES CLOTS WITH VOIDS. BIKINI INCISION CLEAN AND DRY. RATES PAIN AT 2/10 AT THIS TIME. SALINE LOCK TO RIGHT HAND FLUSHED EASILY WITH 5ML NS, VERIFIED WITH PT WHEN IV WAS STARTED AND PT STATES THAT WAS PLACED TO R HAND FRIDAY MORNING ([id number]) AFTER SHE ACCIDENTLY PULLED ONE OUT FROM LEFT HAND. BLOOD REDRAWN PER LAB DUE TO DATE OF ADMIT. PT DENIES ANY QUESTIONS ABOUT BLOOD TRANSFUSION AT THIS TIME. DENIES ANY NEEDS. SIDE RAILS UP X 2 WITH CALL LIGHT IN REACH.
[2019-09-27 09:17] VITALS: BP 118/72
--- NOTE | 2019-09-27 10:10 | NUR ---
GIL IN BLOOD BANK CALLS TO INFORM 1ST UNIT OF PRBC IS READY.
--- NOTE | 2019-09-27 10:45 | NUR ---
1ST UNIT PRBC VERIFIED WITH FAHAD BOURGEOIS RN AT PT BEDSIDE. 98.5/18/104/122/68..
--- NOTE | 2019-09-27 11:04 | NUR ---
1ST UNIT PRBC TRANSFUSING VIA PUMP. PT DENIES ANY DISCOMFORT AT THIS TIME.
--- NOTE | 2019-09-27 12:45 | NUR ---
CALLED TO ROOM, PT COMPLAINS OF "LEAKING" AT IV SITE. THIS RN TO BEDSIDE, THERE IS A SMALL AMOUNT OF BLOOD NOTED UNDER TRANSPARENT DRESSING, PT COMPLAINS OF INCREASED TENDERNESS AT SITE. THERE IS APPROX 15ML PRBC LEFT TO TRANSFUSE, ATTEMPT TO CLEAN AND RETAPE BUT APPEARS TO CONTINUE TO BE LEAKING. TRANSUSION STOPPED, SITE FLUSHED WITH 5ML NS AND IV DISCONTINUED WITH CATH INTACT. PT ASK IF SHE COULD TAKE A SHOWER BEFORE IV IS RESITED AND 2ND UNIT PRBC IS STARTED. TOWELS PLACED IN BATHROOM AND PT TO CALL WHEN SHE HAS FINISHED.
--- NOTE | 2019-09-27 13:45 | NUR ---
PT IS OUT OF SHOWER, DRESSED AND RATES PAIN AT 2/10. TO BREAST AT THIS TIME. WILL ALLOW PT TO FINISH FEEDING AND EAT LUNCH HERSELF BEFORE IV IS RESTARTED.
--- NOTE | 2019-09-27 15:00 | NUR ---
IV TO LEFT HAND WITH 20 GAUGE CATH PER THIS RN X 2 ATTEMPTS. FLUSHED EASILY WITH 5ML NS.
--- NOTE | 2019-09-27 16:00 | NUR ---
2ND UNIT PRBC VERIFIED AT BEDSIDE FAHAD BOURGEOIS RN. VSS, PUMP SET AT 75ML/HR PER INITAL 50ML OF TRANSFUSION.
--- NOTE | 2019-09-27 16:15 | NUR ---
denies pain or discomfort. vss, transfusion increased to 150ml/hr. in crib at bedside. side rails up x 2 with call light in reach, lights turned out per request.
--- NOTE | 2019-09-27 17:00 | NUR ---
Transfusion continue to infuse pt resting on her right side with eyes closed and resp even. No distress noted, left undisturbed at this time. in crib at bedside, pt mother present
--- NOTE | 2019-09-27 18:00 | NUR ---
TRANSFUSION COMPLETED, NS VIA PUMP AT 500ML/HR TO FLUSH. PT DENIES NEEDS AT THIS TIME.
--- NOTE | 2019-09-27 19:51 | NUR ---
AMBULATING IN [place] WITH MOTHER, DENIES NEEDS
[2019-09-27 20:00] VITALS: BP 137/85
--- NOTE | 2019-09-27 20:30 | NUR ---
Patient has more energy after transfusion, states she feels much better. Fundus Firm ML -1 lochia scant rubra, LTV abd incision well approximated with flue, not drainage no redness noted
--- NOTE | 2019-09-27 21:30 | NUR ---
sitting on couch w baby, has been feeding bottle, encouraged to breast feed prior to offering supplement to produce milk supply.
[2019-09-27 22:11] LABS: HEMATOCRIT 27.6 % (36.0-48.0); HEMOGLOBIN 8.6 g/dL (12-16)
--- NOTE | 2019-09-27 22:27 | NUR ---
ADMINISTERED PAIN MEDICATION PER PT REQUEST. SEE EMAR
--- NOTE | 2019-09-27 23:30 | NUR ---
PATIENT REGINA SERRANO IN BED CHANGING INFANTS DIAPER, DENIES PAIN AT THIS TIME, NO NEEDS IDENTIFIED, WILL CONTINUE TO MONITOR
--- NOTE | 2019-09-28 01:12 | NUR ---
resting with eyes closed, SR up x2 and call light in reach
--- NOTE | 2019-09-28 02:30 | NUR ---
SITTING UP ON COUCH, CHEERFUL
[2019-09-28 02:33] VITALS: BP 147/79
--- NOTE | 2019-09-28 04:00 | NUR ---
RESTING, DENIES NEEDS, READY TO GO HOME. BONDING WELL WITH BABY
--- NOTE | 2019-09-28 05:20 | NUR ---
LAB HERE FOR AM BLOOD WORK, DENIES NEEDS
[2019-09-28 05:41] LABS: BASOPHILS 0.1 % (0-2); EOSINOPHILS 0.9 % (0-7); HEMATOCRIT 26.1 % (36.0-48.0); HEMOGLOBIN 8.1 g/dL (12-16); IMMATURE GRANULOCYTES 0.8 % (0-5); LYMPHOCYTES 15.7 % (15-50); MCH 28.2 pg (26.0-34.0); MCV 90.9 fL (80.0-100.0); MEAN PLATELET VOLUME 10.2 fL (7.4-10.4); MONOCYTES 7.1 % (2-11); NEUTROPHILS 75.4 % (40-80); PLATELET COUNT 229 10x3/uL (130-400); RDW 15.7 % (11.5-14.5); WBC 11.6 10x3/uL (4.8-10.8)
[2019-09-28 06:17] LABS: RBC 2.87 10x6/uL (4.00-5.40)
[2019-09-28 08:15] VITALS: BP 146/69
--- NOTE | 2019-09-28 08:21 | NUR ---
ASSESSMENT DONE. SITTING UP IN BEDSIDE CHAIR- HOLDING . WILL LOOK AT INCISION WHEN RETURNS TO BED. REQUESTING PAIN MEDICATION- CO PAIN AT INCISION AND BACK. DENIES OTHER NEEDS.
--- NOTE | 2019-09-28 09:08 | NUR ---
SITTING UP AT BEDSIDE- DENIES NEEDS. VISITOR AT BEDSIDE.
--- NOTE | 2019-09-28 10:45 | NUR ---
Flaco VELASQUEZ HERE TO SEE PT- DISCHARGE ORDERS RECEIVED.
[2019-09-28] MEDS ORDERED: NORMODYNE / TR200 MG PO (11:15)
[2019-09-28] MEDS ORDERED: PERCOCET 5-3251 TAB PO (11:15)
--- NOTE | 2019-09-28 11:20 | NUR ---
iv saline lock removed with cath tip intact.pressure held and bandaide applied. discharge inst verbal and written given. awhonn info sheet given. scripts x2 given along with drug data info and pt med rec. pfw post inst and post op inst given. appointment card given and explained to pt. see also signed discharge inst sheet. pt health summary given. pt denies questions. states she is ready to go home.
--- NOTE | 2019-09-28 11:45 | NUR ---
discharged to home with infant. to auto via w/c.
== END 2019-09-28 11:45 | disposition home or self-care (01) | DRG 788 ==
LOC: D.LD 19:45
PROVIDERS: ADMIT Student in an Organized Health Care Education/Training Program; ATTEND Student in an Organized Health Care Education/Training Program
PROC: 3E033VJ Introduction of Other Hormone into Peripheral Vein, Percutaneous Approach (ICD-10-PCS; 2019-09-24)
PROC: 10D00Z1 Extraction of Products of Conception, Low, Open Approach (ICD-10-PCS; principal; 2019-09-25 19:13)
DX: O99.824 Streptococcus B carrier state complicating childbirth (principal); Z3A.40 40 weeks gestation of pregnancy; Z37.0 Single live birth; O13.4 Gestational [pregnancy-induced] hypertension without significant proteinuria, complicating childbirth; O62.1 Secondary uterine inertia; O90.81 Anemia of the puerperium; D64.9 Anemia, unspecified; R00.0 Tachycardia, unspecified; O90.89 Other complications of the puerperium, not elsewhere classified

== ENCOUNTER 2019-09-30 10:41 | Outpatient (CLI) | payer MEDICAID ==
[2019-09-23 20:27] VITALS: BMI 42.3
[~2019-09-30 10:41] MED LIST changes: +NORMODYNE / TR200 MG PO; +PERCOCET 5-3251 TAB PO
--- NOTE | 2019-09-30 10:50 | NUR ---
RECEIVED PT FROM ER VIA AMBULATORY TO ROOM 1273. PT TO BR TO VOID/COLLECT URINE SPECIMEN.
--- NOTE | 2019-09-30 10:56 | NUR ---
PT TO BED. PT TEARFUL. PT VS NOTED. HRRR WITHOUT AUDIBLE MURMUR. BBS CLEAR. BS X 4. ABDOMEN SOFT/NON-DISTENDED. PT STATES PASSING GAS AND HAD BM THIS AM. LTI WELL APPROXIMATED. NO REDNESS, SWELLING OR DRAINAGE NOTED TO INCISON. MOD EDEMA NOTED MONS AREA. NO REDNESS NOTED. PT STATES HAS SOME RUBRA LOCHIA SMALL AMT. DENIES HEAVY BLEEDING OR PASSING CLOTS. NEG HOMANS' SIGN. PPP. 2+/2+ EDEMA NOTED TO BLE. PT STATES "IT'S A LOT BETTER". PT STATES BREASTMILK CAME IN YESTERDAY. STATES BEGAN YESTERDAY. STATES BABY LATCHING WELL AND NURSING FOR 15 MINUTES EACH BREAST. STATES CHECKED TEMP AT 0100 THIS AM-100.3 AND AGAIN AT 0920-100.6. PT DENIES URINARY SYMPTOMS. SR UP X 2. CALL LIGHT IN REACH.
--- NOTE | 2019-09-30 11:20 | NUR ---
REDNESS NOTED ON UNDERSIDE OF LEFT AREOLA/NIPPLE AND AROUND RIGHT AREOLA/NIPPLE AREA. BREASTS PALPATE SOFT. SMALL AMT OF REDNESS NOTED TO LEFT NIPPLE. PT ABOUT TO PUMP AT THIS TIME.
[2019-09-30 11:24] LABS: BASOPHILS 0.2 % (0-2); EOSINOPHILS 0.6 % (0-7); HEMATOCRIT 26.6 % (36.0-48.0); HEMOGLOBIN 8.3 g/dL (12-16); LYMPHOCYTES 9.2 % (15-50); MCH 28.3 pg (26.0-34.0); MCHC 31.2 g/dL (31.0-37.0); MCV 90.8 fL (80.0-100.0); MEAN PLATELET VOLUME 9.2 fL (7.4-10.4); MONOCYTES 8.6 % (2-11); NEUTROPHILS 79.4 % (40-80); RBC 2.93 10x6/uL (4.00-5.40); RDW 15.4 % (11.5-14.5); WBC 12.6 10x3/uL (4.8-10.8)
--- NOTE | 2019-09-30 11:35 | NUR ---
DR VELASQUEZ ON UNIT. NOTIFIED OF PT RESTARTED YESTERDAY WHEN MILK CAME IN. NOTIFIED OF REDNESS TO BREASTS. DR VELASQUEZ TO ROOM. EXAM DONE. LABS NOT RESULTED YET. WILL NOTIFY DR VELASQUEZ OF LAB RESULTS.
[2019-09-30 11:41] LABS: PLATELET COUNT 302 10x3/uL (130-400)
[2019-09-30 11:41] LABS: BILIRUBIN NEGATIVE (NEGATIVE); GLUCOSE NEGATIVE (NEGATIVE); KETONE NEGATIVE (NEGATIVE); NITRITE NEGATIVE (NEGATIVE); SPECIFIC GRAVITY 1.005 (1.005-1.020); UROBILINOGEN NORMAL (NORMAL)
--- NOTE | 2019-09-30 11:54 | NUR ---
DR VELASQUEZ NOTIFIED OF LAB RESULTS. ORDER RECEIVED TO [facility]; F/U 10/05/19 SCHEDULED.
--- NOTE | 2019-09-30 12:10 | NUR ---
DISCHARGE INSTRUCTIONS GIVEN TO PT. PT VERBALIZES UNDERSTANDING OF ALL INSTRUCTIONS. COPIES GIVEN TO PT. PT PREPARES FOR DISCHARGE. ICE PROVIDED FOR PT TO TRANSPORT BREASTMILK HOME.
--- NOTE | 2019-09-30 12:20 | NUR ---
PT READY FOR DISCHARGE. DISCHARGED IN STABLE CONDITION VIA AMBULATORY OFF UNIT.
== END 2019-09-30 12:20 | disposition home or self-care (01) ==
LOC: D.LDO 10:41
PROVIDERS: ATTEND Student in an Organized Health Care Education/Training Program
DX: O36.8130 Decreased fetal movements, third trimester, not applicable or unspecified (principal); Z3A.32 32 weeks gestation of pregnancy